=== PATIENT | male | born 1980 | race Two or more races ===

== ENCOUNTER 2020-12-21 11:32 | Emergency (ER) | payer SELFPAY ==
[~2020-12-21] VITALS: Ht 172.7 cm; Wt 103.4 kg
[2020-12-21 11:35] VITALS: BP 214/87
[2020-12-21] MEDS ORDERED: HYDROcodone-ACET 5/325MG TAB PO ONE (13:00)
== END 2020-12-21 13:16 | disposition home or self-care (01) ==
LOC: ER 11:32
DX: S92.311A Displaced fracture of first metatarsal bone, right foot, initial encounter for closed fracture (principal); J45.909 Unspecified asthma, uncomplicated; F17.210 Nicotine dependence, cigarettes, uncomplicated; V86.59XA Driver of other special all-terrain or other off-road motor vehicle injured in nontraffic accident, initial encounter; Y93.89 Activity, other specified; Y92.89 Other specified places as the place of occurrence of the external cause; Y99.8 Other external cause status
CPT/HCPCS: 29125; 73630